=== PATIENT | female | born 1980 | race Caucasian/White ===

== ENCOUNTER 2017-09-12 18:18 | Emergency (ER) | payer MEDICAID ==
[~2017-09-12] VITALS: Ht 175.3 cm; Wt 128.0 kg
[2017-09-12 18:30] VITALS: BP 132/91
[2017-09-12] MEDS ORDERED: KETOROLAC 30 MG/1 ML IM ONE (19:00)
[2017-09-12 19:22] LABS: BASOPHILS # (AUTO) 0.03 x10^3/uL (0-0.1); BASOPHILS % (AUTO) 0 % (0-1); EOSINOPHILS # (AUTO) 0.21 x10^3/uL (0-0.4); EOSINOPHILS % (AUTO) 3 % (1-7); LYMPHOCYTES # (AUTO) 2.12 x10^3/uL (1-3.4); LYMPHOCYTES % (AUTO) 29 % (22-44); MD NO; MEAN CORPUSCULAR HEMOGLOBIN 29.5 pg (27.0-34.8); MEAN CORPUSCULAR HGB CONC 33.6 g/dL (32.4-35.8); MEAN CORPUSCULAR VOLUME 87.9 fL (80-100); MEAN PLATELET VOLUME 8.4 fL (7.4-10.4); MONOCYTES # (AUTO) 0.33 x10^3/uL (0.2-0.8); MONOCYTES % (AUTO) 4 % (2-9); NEUTROPHILS # (AUTO) 4.76 x10^3/uL (1.8-6.8); NEUTROPHILS % (AUTO) 64 % (42-75); PLATELET COUNT 221 x10^3/uL (130-400); RED BLOOD COUNT 5.05 x10^6/uL (3.82-5.3)
[2017-09-12] MEDS ORDERED: KETOROLAC 30 MG/1 ML ONE (19:25)
[2017-09-12 19:33] LABS: ALBUMIN 3.6 g/dL (3.4-5.0); ANION GAP 9 mmol/L (5-15); CALCIUM 8.7 mg/dL (8.5-10.1); CHLORIDE 106 mmol/L (98-107)
[2017-09-12 19:38] LABS: CREATININE 0.71 mg/dL (0.55-1.02)
== END 2017-09-12 21:21 | disposition home or self-care (01) ==
LOC: ED 21:15
DX: N80.9 Endometriosis, unspecified (principal); Z88.0 Allergy status to penicillin; E28.2 Polycystic ovarian syndrome
CPT/HCPCS: 36415; 76830; 80048; 82040; 84703; 85025; 96372; 99285; J1885

== ENCOUNTER 2018-02-23 14:52 | Emergency (ER) | payer MEDICAID ==
[~2018-02-23] VITALS: Ht 172.7 cm; Wt 124.0 kg
[2018-02-23] MEDS ORDERED: KETOROLAC 30 MG/1 ML ONE (15:27)
[2018-02-23] MEDS ORDERED: METOCLOPRAMIDE 5 MG/ML, 2ML ONE ×2 (15:28→15:30)
[2018-02-23] MEDS ORDERED: ICN DEXAMETHASONE 0.05 MG/ML IV IV ONE (15:30)
[2018-02-23] MEDS ORDERED: DIPHENHYDRAMINE 50 MG/ML, 1ML IVPush ONE (15:30)
[2018-02-23] MEDS ORDERED: KETOROLAC 30 MG/1 ML IVPush ONE (15:30)
[2018-02-23] MEDS ORDERED: SODIUM CHLORIDE 0.9% 1,000ML IVBOLUS ONE (15:30)
[2018-02-23] MEDS ORDERED: SODIUM CHLORIDE FLUSH 10ML SYR IVF ONE (15:30)
[2018-02-23] MEDS ORDERED: METOCLOPRAMIDE 5 MG/ML, 2ML IVPush ONE (15:30)
[2018-02-23] MEDS ORDERED: DEXAMETHASONE 10 MG in SODIUM CHLORIDE 0.9% 50 ML IV ONE (15:30)
[2018-02-23] MEDS ORDERED: DIPHENHYDRAMINE 50 MG/ML, 1ML ONE (15:32)
[2018-02-23 17:26] VITALS: BP 115/80
== END 2018-02-23 17:30 | disposition home or self-care (01) ==
LOC: ED 16:30
DX: G43.119 Migraine with aura, intractable, without status migrainosus (principal)
CPT/HCPCS: 96365; 96375; 99284; J1100; J1200; J1885; J2765; J7030